=== PATIENT | male | born 1980 | race Caucasian/White ===

== ENCOUNTER 2020-08-19 10:57 | Emergency (ER) | payer SELFPAY ==
[2020-08-19 11:08] VITALS: BP 136/81; PULSE 72; RESP 12; TEMP 36.6; O2SAT 98
--- NOTE | 2020-08-19 11:34 | ED.URI ---
HPI - URI/Sore Throat General Chief Complaint: Upper Respiratory Infection Stated Complaint: Chest,cough,ears Time Seen by Provider: 08/19/20 11:34 Source: patient, RN notes reviewed and old records reviewed Mode of arrival: ambulatory Limitations: no limitations History of Present Illness HPI Narrative: 40 year old male who presents to [facility] with complaints of 10 days symptoms of cough, sinus congestion and drainage, ear fullness and headache with facial pressure. Patient states that he has taken Mucinex with no relief and has been using sinus lavage 2-3 times daily. Patient denies any known fevers, chills, or sweats, reports some yellowish colored sputum. MD elicited complaint: cough, rhinorrhea, nasal congestion and sinus pain Pertinent past history: sinusitis Onset (ago): day(s) (10) Consistency: progressively worsening Severity: moderate Pain scale (0-10): 4 Description of mucous: yellow Able to tolerate fluids by mouth: Yes Exacerbating factors: exertion Relieving factors: nothing Associated symptoms: headache, rhinorrhea, nasal congestion, cough and ear pain (ear fullness) Treatments prior to arrival: other (mucinex and sinus lavage) Related Data Allergies Allergy/AdvReac Type Severity Reaction Status Date / Time No Known Allergies Allergy Unverified 07/03/18 09:49 Review of Systems Review of Systems: Narrative: CONSTITUTIONAL: Denies fever, chills, or sweats. EYES: Denies visual changes, redness, or discharge. ENT: Positive rhinorrhea, congestion, facial pressure,no sore throat, positive ear fullness CARDIOVASCULAR: Denies chest pain, palpitations, or edema. RESPIRATORY: Positive cough no dyspnea. GASTROINTESTINAL: Denies abdominal pain, nausea, vomiting, or diarrhea. GENITOURINARY: Denies dysuria or hematuria. SKIN: Denies rash or itching. MUSCULOSKELETAL: Denies back pain, joint pain, or myalgia. NEUROLOGIC: Positive headache,no numbness, or weakness. PSYCHIATRIC: Denies anxiety or depression. All systems reviewed & are unremarkable except as noted in HPI and below PMFSH Past Medical History Medical History (Updated 08/20/20 @ 00:02 by Frannie Gama) Right orbital fracture Viral infection of left eye Surgical History Surgical History (Updated 08/19/20 @ 19:53 by Lisa Dia NP) History of facial surgery repair of right orbital fracture Family History Family History (Updated 08/19/20 @ 19:56 by Lisa Dia NP) Mother Heart disease Grandparent Cerebrovascular accident Cancer Social History Social History (Updated 08/19/20 @ 19:55 by Lisa Dia NP) Smoking packs per day: 0.5 Smoking cigarettes per day: 10.0 Smoking status: Current some day smoker Tobacco type: cigarettes Additional smoking assessment comments: Quit daily tobacco use in March 2020 Alcohol intake: current Alcohol use details: social Substance use: never Living arrangements: with family Gender identity (if verbalized by the patient): Male Comments At time of signature, agree with nursing past medical, surgical, social and family history. There is no relevant family history pertinent to the presenting complaint Exam Narrative: Exam Narrative: GENERAL: Well-appearing, well-nourished, and in no acute distress. HEAD: Normocephalic, atraumatic. EYES: PERRLA and EOMI. ENT: Nares red and swollen, rhinorrhea no epistaxis. Mucous membranes moist.TM's normal with dull light reflex, throat red with no tonsil enlargement, exudates, or lesions, post nasal drainage. NECK: Supple.no lymphadenopathy CHEST: Scattered wheezing on auscultation. No acute respiratory distress, SAO2 98% on room air HEART: Regular rate and rhythm. No murmur heard. Normal peripheral pulses. ABDOMEN: Soft, nontender, nondistended, normal active bowel sounds. EXTREMITIES: Normal range of motion. No edema. SKIN: Warm, dry, no rash. NEURO: No focal deficits. Alert and oriented x3. Course Vital Signs Vital sig
== END 2020-08-19 11:58 | disposition home or self-care (01) ==
PROVIDERS: Emergency Provider Registered Nurse; PCP Family Medicine Adolescent Medicine
DX: J40 Bronchitis, not specified as acute or chronic (principal); J32.9 Chronic sinusitis, unspecified; F17.210 Nicotine dependence, cigarettes, uncomplicated
CPT/HCPCS: 99213; G0463